=== PATIENT | female | born 1950 | race Caucasian/White ===

== ENCOUNTER 2021-08-26 16:01 | Emergency (ER) | payer OTHER ==
--- NOTE | 2021-08-26 16:56 | RAD REPORT ---
EXAM DESCRIPTION: RAD - Shoulder Left 2 View - 08/26/2021 4:43 pm CLINICAL HISTORY: Left shoulder pain status post fall FINDINGS: Comminuted fracture lateral humeral head with displacement of fracture fragments. Impacti on of fracture fragments present No dislocation
--- NOTE | 2021-08-26 17:47 | RAD REPORT ---
EXAM DESCRIPTION: RAD - Elbow Left 3 View - 08/26/2021 5:38 pm CLINICAL HISTORY: Left elbow pain status post trauma FINDINGS: No fracture or dislocation is seen.
--- NOTE | 2021-08-26 17:59 | ER ---
Nurse's Notes [facility] Name: Steph Sylvester Age: 70 yrs Sex: Female : 1950 Arrival Date: 08/26/2021 Time: 16:12 Bed 13 Private MD: Diagnosis: Fracture of upper end of humerus Presentation: 08/26 16:12 Chief complaint: Patient states: fell on sidewalk, injured left shoulder. Coronavirus cb5 screen: Client denies travel out of the [place] in the last 14 days. At this time, the client does not indicate any symptoms associated with coronavirus-19. Ebola Screen: Patient denies travel to an Ebola-affected area in the 21 days before illness onset. Initial Sepsis Screen: Does the patient meet any 2 criteria? No. Patient's initial sepsis screen is negative. Does the patient have a suspected source of infection? No. Patient's initial sepsis screen is negative. Risk Assessment: Do you want to hurt yourself or someone else? Patient reports no desire to harm self or others. 16:12 Method Of Arrival: Ambulatory cb5 16:12 Acuity: ADITI 3 cb5 Triage Assessment: 16:12 General: Appears comfortable, well groomed, Behavior is calm. Pain: Complains of pain cb5 in left shoulder Pain currently is 4 out of 10 on a pain scale. at worst was 8 out of 10 on a pain scale. EENT: No deficits noted. Neuro: No deficits noted. Level of Consciousness is awake, alert, obeys commands, Oriented to person, place, time, situation, Appropriate for age. Cardiovascular: No deficits noted. Respiratory: No deficits noted. GI: No deficits noted. : No deficits noted. Derm: No deficits noted. Musculoskeletal: Reports pain in left shoulder. - Immunization history:: Adult Immunizations up to date. - Social history:: Smoking status: . Screenin:28 Abuse screen: Denies threats or abuse. Denies injuries from another. Nutritional cb5 screening: No deficits noted. Tuberculosis screening: No symptoms or risk factors identified. 16:29 Fall Risk IV access (20 points). cb5 Assessment: 16:12 General: Appears comfortable, well groomed, Behavior is calm, cooperative, appropriate cb5 for age. Pain: Complains of pain in left shoulder Pain currently is 3 out of 10 on a pain scale. at worst was 8 out of 10 on a pain scale. Neuro: No deficits noted. Level of Consciousness is awake, alert, obeys commands, Oriented to person, place, time, situation, Appropriate for age. Cardiovascular: No deficits noted. Respiratory: No deficits noted. GI: No deficits noted. : No deficits noted. EENT: No deficits noted. EENT: No deficits noted. Derm: No deficits noted. Musculoskeletal: Reports pain in left shoulder. 17:22 Reassessment: Patient and/or family updated on plan of care and expected duration. Pain cb5 level reassessed. 18:00 Reassessment: Patient and/or family updated on plan of care and expected duration. Pain cb5 level reassessed. 18:30 Pain: Complains of pain in left arm and left shoulder Pain currently is 3 out of 10 on cb5 a pain scale. 18:30 General: Tech applied should immolbilizer.. cb5 18:44 Pain: Complains of pain in left arm and left shoulder Pain currently is 6 out of 10 on cb5 a pain scale. Vital Signs: 16:12 BP 124 / 70; Pulse 70; Resp 18; Temp 98.6; Pulse Ox 100% ; Weight 79.38 kg; Height 5 cb5 ft. 6 in. (167.64 cm); Pain 3/10; 16:24 BP 124 / 70; Pulse 70; Resp 18; Temp 98.6; Pulse Ox 100% ; Weight 79.38 kg; Height 5 cb5 ft. 6 in. (167.64 cm); Pain 3/10; 18:05 BP 130 / 72; Pulse 72; Resp 16; Temp 98.6; Pulse Ox 99% ; Pain 6/10; cb5 18:30 Pulse 74; Resp 16; Pulse Ox 98% ; Pain 3/10; cb5 16:24 Body Mass Index 28.25 (79.38 kg, 167.64 cm) cb5 ED Course: 16:12 Patient arrived in ED. ic1 16:12 Peterson Hong PA is PHCP. jr8 16:12 Bala Chauhan MD is Attending Physician. jr8 16:13 Jory Page, BREANN is Primary Nurse. cb5 16:20 Triage completed. cb5 16:22 Arm band placed on Patient EMS administered fentanyl 50mcg and Zofran 4mg. cb5 16:29 Patient has correct armband on for positive identification. Bed in low position. Side cb5 rails up X 1. 16:29 No provider procedures requiring assistance completed. cb5 16:43 XRAY Shoulder LEFT 2 view In Process Unspecified. EDMS 17:38 Elbow Left 3 View XRAY In Process Unspecified. EDMS 17:58 Benja Ramirez MD is Referral Physician. jr8 18:34 Shoulder immobilizer applied on left shoulder. dh3 18:50 IV discontinued. cb5 Administered Medications: 17:57 CANCELLED (Duplicate Order): fentaNYL (PF) 50 mcg IVP once; RASS on ADMIN: Combtv4, jr8 Very Agttd3, Agttd2, Rstlss1, AlertClm0, Drwsy-1, Lt Sdtn-2, Mod Sdtn-3, Dp Sdtn-4, UnArsble-5 18:07 Drug: fentaNYL (PF) 50 mcg Route: IVP; Site: right antecubital; cb5 Outcome: 17:58 Discharge ordered by . jr8 18:50 Discharged to home cb5 18:50 Condition: stable 18:50 Discharge instructions given to patient. 18:50 Patient left the ED. cb5 Signatures: Dispatcher [employer] EDMS Peterson Hong PA PA jr8 Peggy Mendoza 3 Clare Horvath, RN RN ic1 Jory Page, RN RN cb5
--- NOTE | 2021-08-26 17:59 | EDPHYS ---
Physician Documentation [facility] Name: Steph Sylvester Age: 70 yrs Sex: Female : 1950 Arrival Date: 08/26/2021 Time: 16:12 Bed 13 Private MD: ED Physician Bala Chauhan HPI: 08/26 17:37 This 70 yrs old Female presents to ER via Ambulatory with complaints of Fall injury. jr8 17:37 left shoulder. Onset: The symptoms/episode began/occurred acutely, today. Modifying jr8 factors: the symptoms are alleviated by nothing. The symptoms are aggravated by movement. Associated signs and symptoms: The patient has no apparent associated signs or symptoms. Severity of symptoms: At their worst the symptoms were moderate, in the emergency department the symptoms are unchanged. The patient has not experienced similar symptoms in the past. The patient has not recently seen a physician. Accidental mechanical fall at home while walking with walker. Hit left shoulder and with moderate pain since incident. Denies hitting head or neck. Denies LOC or other trauma. - Immunization history:: Adult Immunizations up to date. - Social history:: Smoking status: . ROS: 17:37 Eyes: Negative for injury, pain, redness, and discharge, ENT: Negative for injury, jr8 pain, and discharge, Neck: Negative for injury, pain, and swelling, Cardiovascular: Negative for chest pain, palpitations, and edema, Respiratory: Negative for shortness of breath, cough, wheezing, and pleuritic chest pain, Abdomen/GI: Negative for abdominal pain, nausea, vomiting, diarrhea, and constipation, Back: Negative for injury and pain, Skin: Negative for injury, rash, and discoloration, Neuro: Negative for headache, weakness, numbness, tingling, and seizure. 17:37 MS/extremity: Positive for pain, swelling, tenderness, of the left shoulder. Exam: 17:37 Constitutional: This is a well developed, well nourished patient who is awake, alert, jr8 and in no acute distress. Head/Face: Normocephalic, atraumatic. Neck: Trachea midline, no thyromegaly or masses palpated, and no cervical lymphadenopathy. Supple, full range of motion without nuchal rigidity, or vertebral point tenderness. No Meningismus. Chest/axilla: Normal chest wall appearance and motion. Nontender with no deformity. No lesions are appreciated. Cardiovascular: Regular rate and rhythm with a normal S1 and S2. No gallops, murmurs, or rubs. Normal PMI, no JVD. No pulse deficits. Respiratory: Lungs have equal breath sounds bilaterally, clear to auscultation and percussion. No rales, rhonchi or wheezes noted. No increased work of breathing, no retractions or nasal flaring. Abdomen/GI: Soft, non-tender, with normal bowel sounds. No distension or tympany. No guarding or rebound. No evidence of tenderness throughout. Back: No spinal tenderness. No costovertebral tenderness. Full range of motion. Skin: Warm, dry with normal turgor. Normal color with no rashes, no lesions, and no evidence of cellulitis. Neuro: Awake and alert, GCS 15, oriented to person, place, time, and situation. Cranial nerves II-XII grossly intact. Motor strength 5/5 in all extremities. Sensory grossly intact. 17:37 Musculoskeletal/extremity: Extremities: grossly normal except: noted in the left shoulder: decreased ROM, pain, tenderness, Circulation is intact in all extremities. Pulses: noted to be 2+ in the right radial artery and left radial artery, Sensation intact. Vital Signs: 16:12 BP 124 / 70; Pulse 70; Resp 18; Temp 98.6; Pulse Ox 100% ; Weight 79.38 kg; Height 5 cb5 ft. 6 in. (167.64 cm); Pain 3/10; 16:24 BP 124 / 70; Pulse 70; Resp 18; Temp 98.6; Pulse Ox 100% ; Weight 79.38 kg; Height 5 cb5 ft. 6 in. (167.64 cm); Pain 3/10; 18:05 BP 130 / 72; Pulse 72; Resp 16; Temp 98.6; Pulse Ox 99% ; Pain 6/10; cb5 18:30 Pulse 74; Resp 16; Pulse Ox 98% ; Pain 3/10; cb5 16:24 Body Mass Index 28.25 (79.38 kg, 167.64 cm) cb5 Procedures: 17:37 Splinting: Splint applied to left arm using sling, applied by nurse. Examined by gurvinder espitia post splint application: neurovascular intact, 2+ distal pulses palpable, brisk capillary refill noted, Patient tolerated well. MDM: 16:12 Patient medically screened. jr8 17:37 Data reviewed: vital signs, nurses notes, radiologic studies, plain films. Data jr8 interpreted: Pulse oximetry: on room air is 100 %. Interpretation: normal. Counseling: I had a detailed discussion with the patient and/or guardian regarding: the historical points, exam findings, and any diagnostic results supporting the discharge/admit diagnosis, radiology results, the need for outpatient follow up, a orthopedic surgeon, to return to the emergency department if symptoms worsen or persist or if there are any questions or concerns that arise at home. 08/26 16:22 Order name: XRAY Shoulder LEFT 2 view; Complete Time: 16:58 jr8 08/26 16:51 Order name: Elbow Left 3 View XRAY; Complete Time: 17:57 jr8 08/26 17:44 Order name: Sling; Complete Time: 18:37 jr8 Administered Medications: 17:57 CANCELLED (Duplicate Order): fentaNYL (PF) 50 mcg IVP once; RASS on ADMIN: Combtv4, jr8 Very Agttd3, Agttd2, Rstlss1, AlertClm0, Drwsy-1, Lt Sdtn-2, Mod Sdtn-3, Dp Sdtn-4, UnArsble-5 18:07 Drug: fentaNYL (PF) 50 mcg Route: IVP; Site: right antecubital; cb5 Disposition: 19:39 Co-signature as Attending Physician, Bala Chauhan MD I agree with the assessment and kdr plan of care. Disposition Summary: 08/26/21 17:58 Discharge Ordered Location: Home jr Problem: new jr8 Symptoms: have improved jr8 Condition: Stable jr8 Diagnosis - Fracture of upper end of humerus jr8 Followup: jr8 - With: Benja Ramirez MD - When: 1 week - Reason: Recheck today's complaints, Continuance of care, Re-evaluation by your physician Discharge Instructions: - Discharge Summary Sheet jr8 - Humerus Fracture Treated With Immobilization jr8 Forms: - Medication Reconciliation Form jr8 - Thank You Letter jr8 - Antibiotic Education jr8 - Prescription Opioid Use jr8 Prescriptions: - Tylenol-Codeine #3 300 mg-30 mg Oral - take 2 tablet by ORAL route every 8 hours As needed; 20 tablet; Refills: 0, jr8 Product Selection Permitted Signatures: Dispatcher [employer] Bala Tavarez MD MD kdr Peterson Hong PA PA jr8 Jory Page RN RN cb5 Corrections: (The following items were deleted from the chart) 17:57 17:56 fentaNYL (PF) 50 mcg IVP once; RASS on ADMIN: Combtv4, Very Agttd3, Agttd2, jr8 Rstlss1, AlertClm0, Drwsy-1, Lt Sdtn-2, Mod Sdtn-3, Dp Sdtn-4, UnArsble-5 ordered. jr8
[2021-08-26] MEDS ORDERED: FENTANYL CITR 100 MCG/2 ML ONE (18:02)
[2021-08-26 18:59] VITALS: TEMP 98.6
[2021-08-26 19:02] VITALS: BP 130/72
[2021-08-26 19:03] VITALS: O2SAT 98
== END 2021-08-26 18:50 | disposition home or self-care (01) ==
LOC: ER 16:01
DX: S42.292A Other displaced fracture of upper end of left humerus, initial encounter for closed fracture (principal); W18.30XA Fall on same level, unspecified, initial encounter; Y93.01 Activity, walking, marching and hiking
CPT/HCPCS: 73080; 73030; 96374; 99284; J3010